=== PATIENT | female | born 1985 | race Caucasian/White ===

== ENCOUNTER 2020-02-04 04:39 | Emergency (ER) | payer SELFPAY ==
[2020-02-04] MEDS ORDERED: 50% Dextrose in Water 50 ML Syringe IVPUSH ONE (05:09)
[2020-02-04] MEDS ORDERED: Sodium Chloride 0.9% 1,000 ML IV ONE (05:09)
[2020-02-04] MEDS: EPINEPHrine 1 MG/ML 30 ML MDV IVPUSH PRN ×2 (05:14→05:20)
[2020-02-04] MEDS ORDERED: EPINEPHrine 1 MG/ML 30 ML MDV IVPUSH PRN (05:29)
--- NOTE | 2020-02-04 06:20 | EDM.PDOC ---
ED HPI GENERAL MEDICAL PROBLEM - General Chief Complaint: CPR in Progress Stated Complaint: CPR IN PROGRESS Time Seen by Provider: 02/04/20 05:09 Source of Information: Reports: EMS History Limitations: Reports: Other - History of Present Illness Treatments [facility]: Reports: CPR, See EMS Report ED ROS GENERAL - Review of Systems Review Of Systems: Unable To Obtain Reason Not Obtained: CPR in progress ED EXAM, CPR - Physical Exam Exam: See Below Text/Narrative:: CPR in progress of 34 year old female no known PMH. Was found unresponsive and pulseless when boyfriend woke up. He states she c/o headache prior to going to bed, he encouraged her to go to ER, but she refused. 911 called at [id number] and CPR started. Unable to place advanced airway despite several attempts. Patient arrived in ER with mottled extremities, pedro and patent nasal airway with ventilations via BVM.. EMS states they gave 1 shock 8 minutes [facility] then asystole throughout transfer. Asystole on arrival and epi given through left LE IO. Rhythm checks show continued asystole after 4 rounds of epi. Blood sugar was <27, amp of D50 given. Unable to obtain blood, but COVID 19 swab obtained. Time of 528 Please see [facility] Fax for complete charting. Limited By: Unresponsive General Appearance: Other (mottled, fixed dialated pupils) Eye Exam: Bilateral Eye: Abnormal Pupil (fixed and dialated on arrival) Throat/Mouth: Other (dark, bloody vomit present in mouth, suction used, OG placed) Head: Atraumatic Respiratory Chest: Other (good air movement with BVM ventilations, ) Cardiovascular: CPR In Progress 2+: Femoral (R) (with compressions), Femoral (L) (with compressions) Extremities: Mottled Neurological: Unresponsive Skin Exam: Cool, Mottled Course - Orders/Labs/Meds Orders: Active Orders 24 hr Category Date Time Status CORONAVIRUS COVID-19 RAPID [MOLEC] Stat Lab 02/04/20 06:05 Ordered Dextrose 50% in Water Med 02/04/20 05:09 Once 50 ml IVPUSH ONETIME ONE EPINEPHrine [Adrenalin] Med 02/04/20 06:36 Ordered 1 mg IVPUSH ASDIRECTED PRN Sodium Chloride 0.9% [Normal Saline] 1,000 ml Med 02/04/20 05:09 Active IV .BOLUS Medication Orders Dextrose/Water (Dextrose 50% In Water) 50 ml IVPUSH ONETIME ONE Stop: 02/04/20 05:10 Epinephrine HCl (Adrenalin) 1 mg IVPUSH ASDIRECTED PRN PRN Reason: asystole Sodium Chloride (Normal Saline) 1,000 mls @ 999 mls/hr IV .BOLUS ONE Stop: 02/04/20 06:09 Meds: Medications Generic Name Dose Route Start Last Admin Trade Name Freq PRN Reason Stop Dose Admin Dextrose/Water 50 ml 02/04/20 05:09 Dextrose 50% In Water IVPUSH 02/04/20 05:10 ONETIME ONE Epinephrine HCl 1 mg 02/04/20 06:36 Adrenalin IVPUSH ASDIRECTED PRN asystole Sodium Chloride 1,000 mls @ 999 mls/hr 02/04/20 05:09 Normal Saline IV 02/04/20 06:09 .BOLUS ONE Discontinued Medications Generic Name Dose Route Start Last Admin Trade Name Freq PRN Reason Stop Dose Admin Epinephrine HCl 1 mg 02/04/20 05:29 Adrenalin IVPUSH ASDIRECTED PRN asystole Departure - Departure Time of Disposition: 05:29 Disposition: 20 Preliminary Cause of *Q: Other_Special Instruction Clinical Impression: Intracranial hemorrhage - Discharge Information *PRESCRIPTION DRUG MONITORING PROGRAM REVIEWED*: Not Applicable *COPY OF PRESCRIPTION DRUG MONITORING REPORT IN PATIENT KIZZY: Not Applicable - My Orders Last 24 Hours: My Active Orders 02/04/20 05:09 Dextrose 50% in Water 50 ml IVPUSH ONETIME ONE Sodium Chloride 0.9% [Normal Saline] 1,000 ml IV .BOLUS 02/04/20 06:05 CORONAVIRUS COVID-19 RAPID [MOLEC] Stat 02/04/20 06:36 EPINEPHrine [Adrenalin] 1 mg IVPUSH ASDIRECTED PRN - Assessment/Plan Last 24 Hours: My Active Orders 02/04/20 05:09 Dextrose 50% in Water 50 ml IVPUSH ONETIME ONE Sodium Chloride 0.9% [Normal Saline] 1,000 ml IV .BOLUS 02/04/20 06:05 CORONAVIRUS COVID-19 RAPID [MOLEC] Stat 02/04/20 06:36 EPINEPHrine [Adrenalin] 1 mg IVPUSH ASDIRECTED PRN
== END 2020-02-04 08:02 | disposition expired ==
LOC: LB.ED 04:39
DX: I62.9 Nontraumatic intracranial hemorrhage, unspecified (principal); Z20.828 Contact with and (suspected) exposure to other viral communicable diseases
CPT/HCPCS: 92950; 96374; 96375; 99285-25; J0171; J7040; U0002